=== PATIENT | male | born 1960 | race Caucasian/White ===

== ENCOUNTER 2017-09-08 12:38 | Emergency (ER) | payer MEDICAID, SELFPAY ==
[2017-09-08 12:38] VITALS: BP 116/80; PULSE 112; RESP 18; TEMP 36.7; O2SAT 99; BMI 22.4
--- NOTE | 2017-09-08 12:55 | HMH.EDWEAK ---
ED Disposition Clinical Impression: Weakness UTI (urinary tract infection) Qualifiers: Urinary tract infection type: acute cystitis Hematuria presence: without hematuria Qualified Code(s): N30.00 - Acute cystitis without hematuria Disposition: Home, Self-Care Condition on Discharge: Good Instructions: Urinary Tract Infection Additional Instructions: See PCP in one week to recheck urine; push fluids as slightly dehydrated today; Rx Bactrim with first dose given in ER today and will need second dose tonight. Prescriptions: Sulfamethoxazole/Trimethoprim [Bactrim DS tablet] 1 each PO BID 7 Days #14 tab Referrals: Fish Infante MD [Primary Care Provider] - - Critical Care Critical Care Time: No Attestation: On , the high probability of a clinically significant, sudden or life threatening deterioration of the following system(s) required my full and direct attention, intervention and personal management. The time I documented below is in addition to time spent performing reported procedures but includes the following listed in this critical care notation. Medical Decision Making - Medical Records Medical records reviewed: Yes: I reviewed the patient's medical records. - Jayce Inquiry Pt receiving controlled substance: No Vital Signs: 09/08/17 12:38 Temperature 98.1 F Temperature Source Oral Pulse Rate [Right Brachial] 112 H Respiratory Rate 18 Blood Pressure [Right Arm] 116/80 Blood Pressure Mean [Right Arm] 92 Blood Pressure Source [Right Arm] Automatic Cuff Blood Pressure Position [Right Arm] Sitting 02 Sat by Pulse Oximetry 99 Oxygen Delivery Method Room Air - Lab Data Lab results reviewed: Yes: I reviewed the patient's lab results. Lab Results 09/08/17 13:15: WBC 12.6 H, RBC 4.00 L, Hgb 12.0 L, Hct 37.8 L, MCV 94.5 H, MCH 30.1, MCHC 31.8, RDW 13.8, Plt Count 106 L, MPV 9.5, Neut % (Auto) 83.2 H, Lymph % (Auto) 8.5 L, [place] % (Auto) 8.0, Eos % (Auto) 0.3, Baso % (Auto) 0.1, Neut # (Auto) 10.5 H, Lymph # (Auto) 1.1, [place] # (Auto) 1.0, Eos # (Auto) 0.0, Baso # (Auto) 0.0 09/08/17 13:15: Sodium 137, Potassium 4.7, Chloride 103, Carbon Dioxide 29, Anion Gap 9.7, BUN 30 H, Creatinine 1.27, Estimated Creat Clear 68, Estimated GFR 58 L, Est GFR ( Amer) 71, Glucose 157 H, Calcium 8.8, Total Bilirubin 0.5, AST 9 L, ALT 9 L, Alkaline Phosphatase 72, Total Protein 6.4, Albumin 2.9 L, Globulin 3.5 H, Albumin/Globulin Ratio 0.8 L, Total Valproic Acid 86.0 09/08/17 13:15: Troponin I < 0.02 09/08/17 14:27: Urine Color Yellow, Urine Appearance Cloudy, Urine pH 5.5, Ur Specific [place] >= 1.030, Urine Protein 2+, Urine Glucose (UA) Negative, Urine Ketones Trace, Urine Blood Trace-i, Urine Nitrate Positive, Urine Bilirubin 2+ A, Urine Urobilinogen 1.0, Ur Leukocyte Esterase 1+ A, Urine WBC 20-50, Ur Squamous Epith Cells 3-5, Urine Bacteria 4+, Waxy Casts 5-10 Result diagrams: 09/08/17 13:15 09/08/17 13:15 Orders (Tests/Meds): ORDERS Category Date Time Status Urine Culture Stat Micro 09/08/17 14:27 Received - ECG Data Tracing #1 Stach 124, is being fluid rehydrated orally, is ambulatory, alert, no complaints; waiting on urine specimen. ECG normal with no acute: arrhythmias, ischemia, conduction abnormalities, chamber hypertrophy Normal Sinus Rhythm: No (stach) - Reevaluation(s) Time: 14:49 (alert, ambulatory able to drink and urinate; no complaints) Weakness HPI - General Chief complaint: Fall Stated complaint: fall Time Seen by Provider: 09/08/17 12:55 Mode of Arrival: Ambulatory Limitations: No Limitations Description of Symptoms (Recalled from ER Triage Doc. by RN): fall while standing in hallway; has some general weakness - History of Present Illness HPI Narrative: Generalized weakness without any chest pain, denies fever, denies SOB, no vomiting or diarrhea, no change in stools; no cephalgia; no focal neurological complaints. [facility] states he is like this sometimes when his
--- NOTE | 2017-09-08 13:02 | ED_ITS ---
ED Disposition Clinical Impression: Weakness UTI (urinary tract infection) Qualifiers: Urinary tract infection type: acute cystitis Hematuria presence: without hematuria Qualified Code(s): N30.00 - Acute cystitis without hematuria Disposition: Home, Self-Care Condition on Discharge: Good Instructions: Urinary Tract Infection Additional Instructions: See PCP in one week to recheck urine; push fluids as slightly dehydrated today; Rx Bactrim with first dose given in ER today and will need second dose tonight. Prescriptions: Sulfamethoxazole/Trimethoprim [Bactrim DS tablet] 1 each PO BID 7 Days #14 tab Referrals: Fish Infante MD [Primary Care Provider] - - Critical Care Critical Care Time: No Attestation: On , the high probability of a clinically significant, sudden or life threatening deterioration of the following system(s) required my full and direct attention, intervention and personal management. The time I documented below is in addition to time spent performing reported procedures but includes the following listed in this critical care notation. Medical Decision Making - Medical Records Medical records reviewed: Yes: I reviewed the patient's medical records. - Jayce Inquiry Pt receiving controlled substance: No Vital Signs: 09/08/17 12:38 Temperature 98.1 F Temperature Source Oral Pulse Rate [Right Brachial] 112 H Respiratory Rate 18 Blood Pressure [Right Arm] 116/80 Blood Pressure Mean [Right Arm] 92 Blood Pressure Source [Right Arm] Automatic Cuff Blood Pressure Position [Right Arm] Sitting 02 Sat by Pulse Oximetry 99 Oxygen Delivery Method Room Air - Lab Data Lab results reviewed: Yes: I reviewed the patient's lab results. Lab Results 09/08/17 13:15: WBC 12.6 H, RBC 4.00 L, Hgb 12.0 L, Hct 37.8 L, MCV 94.5 H, MCH 30.1, MCHC 31.8, RDW 13.8, Plt Count 106 L, MPV 9.5, Neut % (Auto) 83.2 H, Lymph % (Auto) 8.5 L, [place] % (Auto) 8.0, Eos % (Auto) 0.3, Baso % (Auto) 0.1, Neut # (Auto) 10.5 H, Lymph # (Auto) 1.1, [place] # (Auto) 1.0, Eos # (Auto) 0.0, Baso # (Auto) 0.0 09/08/17 13:15: Sodium 137, Potassium 4.7, Chloride 103, Carbon Dioxide 29, Anion Gap 9.7, BUN 30 H, Creatinine 1.27, Estimated Creat Clear 68, Estimated GFR 58 L, Est GFR ( Amer) 71, Glucose 157 H, Calcium 8.8, Total Bilirubin 0.5, AST 9 L, ALT 9 L, Alkaline Phosphatase 72, Total Protein 6.4, Albumin 2.9 L, Globulin 3.5 H, Albumin/Globulin Ratio 0.8 L, Total Valproic Acid 86.0 09/08/17 13:15: Troponin I < 0.02 09/08/17 14:27: Urine Color Yellow, Urine Appearance Cloudy, Urine pH 5.5, Ur Specific [place] >= 1.030, Urine Protein 2+, Urine Glucose (UA) Negative, Urine Ketones Trace, Urine Blood Trace-i, Urine Nitrate Positive, Urine Bilirubin 2+ A , Urine Urobilinogen 1.0, Ur Leukocyte Esterase 1+ A, Urine WBC 20-50, Ur Squamous Epith Cells 3-5, Urine Bacteria 4+, Waxy Casts 5-10 Result diagrams: 09/08/17 13:15 09/08/17 13:15 Orders (Tests/Meds): ORDERS Category Date Time Status Urine Culture Stat Micro 09/08/17 14:27 Received - ECG Data Tracing #1 Stach 124, is being fluid rehydrated orally, is ambulatory, alert, no complaints ; waiting on urine specimen. ECG normal with no acute: arrhythmias, ischemia, conduction abnormalities, chamber hypertrophy Normal Sinus Rhythm: No (stach) - Reevaluation(s) Time: 14:49 (alert, ambulatory able to drink and urinate; no complaints) Weakness HPI
[2017-09-08 13:40] LABS: Alanine Aminotransferase 9 U/L (12-78); Albumin Level 2.9 gm/dL (3.4-5.0); Albumin/Globulin Ratio 0.8 (1.1-1.8); Alkaline Phosphatase 72 U/L (46-116); Anion Gap 9.7 mEq/L (5-15); Aspartate Amino Transferase 9 U/L (15-37); Bilirubin,Total 0.5 mg/dL (0.2-1.0); Blood Urea Nitrogen 30 mg/dL (7-18); Calcium 8.8 mg/dL (8.5-10.1); Carbon Dioxide 29 mmol/L (21.0-32.0); Chloride 103 mmol/L (98-107); Creatinine Clearance Estimated 68 mL/min (0-300); Creatinine,Serum 1.27 mg/dL (0.70-1.30); Estimated Glomerular Filt Rate 58 ml/min (>60); GFR (African American) 71 ML/MIN (>60); Globulin 3.5 gm/dl (1.3-3.2); Glucose 157 mg/dL (74-106); Potassium 4.7 mmoL/L (3.5-5.1); Sodium 137 mmol/L (136-145); Total Protein,Serum 6.4 gm/dL (6.4-8.2)
[2017-09-08 13:44] LABS: Basophils % 0.1 % (0.1-2.0); Eosinophils % 0.3 % (0.1-12.0); Hematocrit 37.8 % (42.0-52.0); Lymphocytes # 1.1 K/mm3 (0.7-4.5); Lymphocytes % 8.5 K/mm3 (10-50); Mean Corpuscular HGB Conc 31.8 g/dL (31.8-35.4); Mean Corpuscular Hemoglobin 30.1 pg (27.0-31.2); Mean Corpuscular Volume 94.5 fl (80-94); Mean Platelet Volume 9.5 fl (7.4-10.4); Neutrophils # 10.5 K/mm3 (1.8-7.8); Neutrophils % 83.2 % (37.0-80.0); Platelet Count 106 K/mm3 (142-424); Red Cell Distribution Width 13.8 % (11.5-17.5); White Blood Count 12.6 K/mm3 (4.8-10.8)
[2017-09-08 14:15] LABS: Troponin I < 0.02 ng/ml (0.00-0.06)
[2017-09-08 14:35] LABS: Microscopic, Urine URINE MICROSCOPIC (MICROSCOPIC)
[2017-09-08 14:40] LABS: Appearance,Urine CLOUDY (Clear); Blood, Urine TRACE-I (Negative); Color,Urine YELLOW (Yellow); Glucose,Urine (UA) Negative (Negative); Ketones,Urine TRACE (Negative); Leukocyte Esterase,Urine 1+ (Negative); Nitrate,Urine POSITIVE (Negative); PH,Urine 5.5 (5.0-8.5); Protein,Urine 2+ (Negative); Specific Gravity, Urine >= 1.030 (1.005-1.030)
[2017-09-08 14:46] LABS: Bilirubin,Urine 2+ (Negative)
[2017-09-08 14:47] LABS: Bacteria,Urine 4+ /lpf; WBC,Urine 20-50 #/hpf (0-3)
[2017-09-08 15:24] VITALS: BP 124/79; PULSE 88; RESP 16; TEMP 37.2; O2SAT 97
== END 2017-09-08 15:29 | disposition home or self-care (01) ==
PROVIDERS: Emergency Provider Emergency Medicine; Family Provider Emergency Medicine; PCP Emergency Medicine
DX: N30.00 Acute cystitis without hematuria (principal); I10 Essential (primary) hypertension; E78.5 Hyperlipidemia, unspecified; F20.9 Schizophrenia, unspecified
CPT/HCPCS: 36415; 80053; 80164; 81001; 84484; 85025; 87086; 87088; 87186; 93005; 99282

== ENCOUNTER 2020-11-08 12:35 | Emergency (ER) | payer MEDICAID, SELFPAY ==
[2020-11-08 12:37] VITALS: BP 124/74; PULSE 80; RESP 16; TEMP 36.8; O2SAT 100; BMI 20.3
--- NOTE | 2020-11-08 12:42 | PC.NURSE ---
ROSE Vasquez speaking with Raheel Monteiro at this time attempting to find out information about patient. No family came in with pt.
--- NOTE | 2020-11-08 12:43 | PC.NURSE ---
Pt brought in per EMS. Pt was known to staff in ED. I called Raheel Monteiro and she advised that he had been in [facility] was wasn't sure he was back. Advised he was being dropped off at [facility] to become a resident when he took off on foot. Licensing Registration Examiner at [facility] Monte[facility] advised she would maybe have to call his brother to come and get him. Advised she would call me later when she figured out what was going on.
--- NOTE | 2020-11-08 12:54 | PC.NURSE ---
Patients brother, Shamir, called the facility and advised Raheel Monteiro had contacted him stating his brother is in the ED and request to speak with him. ROSE Vasquez spoke with brother Shamir and advised him of the situation and allowed the patient to speak w/ his brother.
--- NOTE | 2020-11-08 13:08 | PC.NURSE ---
Richard at bedside.
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
--- NOTE | 2020-11-08 13:23 | PC.NURSE ---
Pt was agreeable to go to [place]. Staff arrived and spoke with pt and pt was agreeable to go. Pt left with staff.
[2020-11-08 13:24] VITALS: BP 110/74; PULSE 70; RESP 16; TEMP 36.8; O2SAT 98
== END 2020-11-08 13:25 | disposition home or self-care (01) ==
PROVIDERS: Emergency Provider Emergency Medicine
DX: R41.82 Altered mental status, unspecified (principal); F20.9 Schizophrenia, unspecified; E78.5 Hyperlipidemia, unspecified; I10 Essential (primary) hypertension; Z79.899 Other long term (current) drug therapy
CPT/HCPCS: 99282

== ENCOUNTER 2020-11-10 22:09 | Emergency (ER) | payer MEDICAID, SELFPAY ==
[2020-11-10 22:17] VITALS: BP 151/81; PULSE 95; RESP 16; TEMP 36.8; O2SAT 98; BMI 21.7
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
[2020-11-11 00:18] VITALS: BP 142/70; PULSE 65; RESP 16; TEMP 36.8; O2SAT 98
== END 2020-11-11 00:19 | disposition home or self-care (01) ==
PROVIDERS: Emergency Provider Emergency Medicine
DX: S01.81XA Laceration without foreign body of other part of head, initial encounter (principal); S00.03XA Contusion of scalp, initial encounter; W22.8XXA Striking against or struck by other objects, initial encounter; Y92.199 Unspecified place in other specified residential institution as the place of occurrence of the external cause; I10 Essential (primary) hypertension; E78.5 Hyperlipidemia, unspecified; F25.9 Schizoaffective disorder, unspecified
CPT/HCPCS: 12011; 70450; 72125; 99283